=== PATIENT | male | born 1970 | race Asian ===

== ENCOUNTER 2021-11-30 17:48 | Emergency (ER) | payer BC ==
[~2021-11-30] VITALS: Ht 165.1 cm; Wt 68.0 kg
[2021-11-30 18:43] LABS: PLATELET COUNT 339 K/uL (142-355)
[2021-11-30 18:56] LABS: POTASSIUM 3.3 mmol/L (3.6-5.2)
[2021-11-30 20:29] VITALS: BP 158/95; TEMP 98.7
== END 2021-11-30 20:29 | disposition home or self-care (01) ==
LOC: ED 17:48
PROVIDERS: Emergency Medicine Emergency Medical Services
DX: E11.649 Type 2 diabetes mellitus with hypoglycemia without coma (principal)
CPT/HCPCS: 36415; 80053; 80307; 81002; 83735; 84484; 85027; 93005; 96360; 96374; 99284; J2405; J7060